=== PATIENT | male | born 1980 | race American Indian/Alaskan Native ===

== ENCOUNTER 2018-09-19 05:55 | Emergency (ER) | payer MEDICAID ==
[2018-09-19 06:12] VITALS: BP 155/87
[2018-09-19 07:22] LABS: Hematocrit 34.4 % (35.5-45.6); Hemoglobin 11.3 gm/dl (11.8-15.2); Mean Corpuscular HGB Conc 33 % (32-34); Mean Corpuscular Volume 85 fl (84-94); Platelet Count 250 K/mm3 (140-440); Red Blood Count 4.07 M/mm3 (3.65-5.03); Red Cell Distribution Width 13.1 % (13.2-15.2)
[2018-09-19 07:47] LABS: Alanine Aminotransferase 16 units/L (7-56); Albumin 3.9 g/dL (3.9-5); BUN/Creatinine Ratio 14; Blood Urea Nitrogen 14 mg/dL (9-20); Calcium 8.5 mg/dL (8.4-10.2); Hemolysis Index 5
--- NOTE | 2018-09-19 08:26 | Emergency Department Report ---
ED General Adult HPI - General Chief complaint: Extremity Injury, Lower Stated complaint: EARACHE/SWELLING IN BOTH LEGS/ANKLES Time Seen by Provider: 09/19/18 08:15 Source: patient Mode of arrival: Ambulatory Limitations: No Limitations - History of Present Illness Initial comments: Patient is a 38-year-old male who is complaining of 2 different issues. Patient was a patient states that his bilateral lower extremities have been swelling for the past 3-4 days. Patient states that the swelling is better in the morning to worsen throughout the day. Patient is on his feet quite often throughout the day. Patient denies any trauma. He states there is been no chest pain shortness of breath fevers chills nausea vomiting, cold or co ngestion. Second issue is that the patient states that his right ear has been aching and throbbing for the past 2 weeks. He denies any congestion sore throat. Patient is scheduled to see a ear nose and throat doctor however the appointment was canceled. The patient states the pain in the right ear as 3 out of 10 in severity and is aching and throbbing. Patient has a history of diabetes and hypertension. - Related Data Previous Rx's Medication Instructions Recorded Last Taken Type Amoxicillin/Potassium Clav 1 each PO BID #14 tablet 09/19/18 Unknown Rx [Augmentin 875-125 Tablet] Fluticasone [Flonase] 1 spray NS QDAY #1 bottle 09/19/18 Unknown Rx Furosemide [Lasix] 20 mg PO QDAY #7 tablet 09/19/18 Unknown Rx Ibuprofen [Motrin 800 MG tab] 800 mg PO Q8HR PRN #12 tablet 09/19/18 Unknown Rx Allergies Allergy/AdvReac Type Severity Reaction Status Date / Time No Known Allergies Allergy Unverified 09/19/18 05:59 ED Review of Systems ROS: Stated complaint: EARACHE/SWELLING IN BOTH LEGS/ANKLES Other details as noted in HPI Comment: All other systems reviewed and negative ED Past Medical Hx - Past Medical History Previous Medical History?: Yes Hx Hypertension: Yes Hx Diabetes: Yes Additional medical history: High Cholesterol - Surgical History Past Surgical History?: Yes Additional Surgical History: Abcess removal x 2, Bilateral elbow surgery, Tosilectomy and Adnoid removal, Sinus Surgery - Social History Smoking Status: Never Smoker - Medications Home Medications: Home Medications Medication Instructions Recorded Confirmed Last Taken Type Amoxicillin/Potassium Clav 1 each PO BID #14 tablet 09/19/18 Unknown Rx [Augmentin 875-125 Tablet] Fluticasone [Flonase] 1 spray NS QDAY #1 bottle 09/19/18 Unknown Rx Furosemide [Lasix] 20 mg PO QDAY #7 tablet 09/19/18 Unknown Rx Ibuprofen [Motrin 800 MG tab] 800 mg PO Q8HR PRN #12 tablet 09/19/18 Unknown Rx ED Physical Exam - General Limitations: No Limitations General appearance: alert, in no apparent distress - Head Head exam: Present: atraumatic, normocephalic - Eye Eye exam: Present: normal appearance, PERRL, EOMI - ENT ENT exam: Present: mucous membranes moist - Expanded ENT Exam Expanded TM/Canal exam: Erythema: Right TM, Bulging: Right TM, Effusion: Right TM (cloudy), Loss of Landmarks: Right TM Throat exam: Positive: normal inspection - Neck Neck exam: Present: normal inspection - Respiratory Respiratory exam: Present: normal lung sounds bilaterally. Absent: respiratory distress - Cardiovascular Cardiovascular Exam: Present: regular rate, normal rhythm - GI/Abdominal GI/Abdominal exam: Present: soft, normal bowel sounds. Absent: distended - Rectal Rectal exam: Present: deferred - Extremities Exam Extremities exam: Present: normal inspection, other (+2 HERLINDA bilaterally') - Back Exam Back exam: Present: normal inspection - Neurological Exam Neurological exam: Present: alert, oriented X3 - Psychiatric Psychiatric exam: Present: normal affect, normal mood - Skin Skin exam: Present: warm, dry, intact, normal color. Absent: rash ED Course Vital Signs 09/19/18 06:10 Temperature 97.7 F Pulse Rate 77 Respiratory 20 Rate Blood Pressure 155/87 O2 Sat by Pulse 98 Oximetry ED Medical Decision Making - Lab Data Result diagrams: 09/19/18 07:07 09/19/18 07:07 Lab Results 09/19/18 09/19/18 Range/Units 07:07 07:07 WBC 6.9 (4.5-11.0) K/mm3 RBC 4.07 (3.65-5.03) M/mm3 Hgb 11.3 L (11.8-15.2) gm/dl Hct 34.4 L (35.5-45.6) % MCV 85 (84-94) fl MCH 28 (28-32) pg MCHC 33 (32-34) % RDW 13.1 L (13.2-15.2) % Plt Count 250 (140-440) K/mm3 Sodium 142 (137-145) mmol/L Potassium 3.6 (3.6-5.0) mmol/L Chloride 103.5 (98-107) mmol/L Carbon Dioxide 26 (22-30) mmol/L Anion Gap 16 mmol/L BUN 14 (9-20) mg/dL Creatinine 1.0 (0.8-1.5) mg/dL Estimated GFR > 60 ml/min BUN/Creatinine Ratio 14 % Glucose 158 H (75-100) mg/dL Calcium 8.5 (8.4-10.2) mg/dL Total Bilirubin 0.30 (0.1-1.2) mg/dL AST 16 (5-40) units/L ALT 16 (7-56) units/L Alkaline Phosphatase 71 (35-129) units/L NT-Pro-B Natriuret Pep 168.9 (0-450) pg/mL Total Protein 6.8 (6.3-8.2) g/dL Albumin 3.9 (3.9-5) g/dL Albumin/Globulin Ratio 1.3 % - Medical Decision Making Regarding the patient's leg swelling the patient does not appear to be in a congestive heart failure exacerbation and the patient's renal function and liver function tests are within normal limits. Patient likely has some dependent edema secondary to some fluid overload secondary to his diet. Patient does admit that he had is noncompliant with his hypertensive/diabetic diet. He states he has been eating foods that do contain a large amount of salt. We did do some counseling regarding low sodium diet. Patient also be started on Lasix for several days to help with some swelling. Regarding the patient's ear pain patient does appear to have otitis media at this time he will be started on antibiotics secondary to his being diabetic and the duration of symptoms. This is less likely to be viral source. Critical care attestation.: If time is entered above; I have spent that time in minutes in the direct care of this critically ill patient, excluding procedure time. ED Disposition Clinical Impression: Dependent edema Acute otitis media Qualifiers: Otitis media type: suppurative Laterality: right Recurrence: non-recurrent Spontaneous tympanic membrane rupture: without spontaneous rupture Qualified Code(s): H66.001 - Acute suppurative otitis media without spontaneous rupture of ear drum, right ear Disposition: DC- TO HOME OR SELFCARE Is pt being admited?: No Does the pt Need Aspirin: No Condition: Stable Instructions: Leg Edema (ED), Low Sodium Diet (ED), Otitis Media (ED) Referrals: RAINA WARE MD [Primary Care Provider] - 3-5 Days Time of Disposition: 08:27
== END 2018-09-19 08:36 | disposition home or self-care (01) ==
LOC: ED 05:55
DX: H66.91 Otitis media, unspecified, right ear (principal); R60.9 Edema, unspecified; I10 Essential (primary) hypertension; E11.9 Type 2 diabetes mellitus without complications; E78.00 Pure hypercholesterolemia, unspecified; Z98.890 Other specified postprocedural states; Z79.899 Other long term (current) drug therapy
CPT/HCPCS: 36415; 80053; 83880; 85027; 99283

== ENCOUNTER 2020-02-09 22:13 | Observation (INO) | payer MEDICAID ==
[2020-02-09] MEDS ORDERED: ASPIRIN 325 MG TAB PO ONE (23:31)
--- NOTE | 2020-02-10 00:02 | Emergency Department Report ---
ED Chest Pain HPI - General Chief Complaint: Chest Pain Stated Complaint: CHEST PAIN/NECK PAIN PUI?: No Time Seen by Provider: 02/09/20 23:56 Source: patient Mode of arrival: Ambulatory Limitations: No Limitations - History of Present Illness Initial Comments: Patient is a 39-year-old male that presents emergency room with complaints of right and left chest pain and shortness of breath. Patient states his symptoms started at 6 PM. Patient states his symptoms are worsening. Patient states his chest pain is radiating to his neck. Patient states his chest pain or shortness of breath are better with rest and worse with exertion. Patient denies fever and chills. Patient denies cough. Patient denies nausea and vomiting. Patient denies diaphoresis.. Patient denies recent travel. Patient denies recent international travel. Patient denies exposure to the novel coronavirus. Patient denies sick contacts. Patient denies fever and chills. Patient denies cough. Patient denies diarrhea. Patient denies coming in contact with anybody with symptoms of the novel coronavirus. MD Complaint: chest pain -: Sudden Pain Location: substernal, left chest, right chest Pain Radiation: neck Severity scale (0 -10): 4 Quality: sharp Consistency: constant Improves With: rest Worsens With: exertion re: dyspnea. denies: nausea, vomting, diaphoresis, sense of impending doom Other Symptoms: denies: cough, fever, syncope, rash, acid taste in mouth, leg swelling, palpitations, burping Treatments Prior to Arrival: none Aspirin use within the Past 7 Days: (1) Yes - Related Data On Oral Contraceptives: No Home Medications Medication Instructions Recorded Confirmed Last Taken Labetalol 300mg TAB 300 mg PO BID 02/10/20 02/10/20 Unknown Quinapril HCl 40 mg PO DAILY 02/10/20 02/10/20 Unknown Triamter/Hctz 37.5-25 mg 25 mg PO DAILY 02/10/20 02/10/20 Unknown hydrALAZINE 100 mg PO BID 02/10/20 02/10/20 Unknown metFORMIN 1,000 mg PO BID 02/10/20 02/10/20 Unknown Allergies Allergy/AdvReac Type Severity Reaction Status Date / Time No Known Allergies Allergy Verified 02/09/20 23:57 Heart Score - HEART Score History: Moderately suspicious EKG: Non-specific Age: < 45 Risk factors: > 3 risk factors or hx of atherosclerotic disease Troponin: < normal limit HEART Score: 4 ED Review of Systems ROS: Stated complaint: CHEST PAIN/NECK PAIN Other details as noted in HPI Constitutional: denies: chills, fever Eyes: denies: eye pain, eye discharge, vision change ENT: denies: ear pain, throat pain Respiratory: shortness of breath. denies: cough, wheezing Cardiovascular: chest pain. denies: palpitations Endocrine: no symptoms reported Gastrointestinal: denies: abdominal pain, nausea, diarrhea Genitourinary: denies: urgency, dysuria Musculoskeletal: denies: back pain, joint swelling, arthralgia Skin: denies: rash, lesions Neurological: denies: headache, weakness, paresthesias Psychiatric: denies: anxiety, depression Hematological/Lymphatic: denies: easy bleeding, easy bruising ED Past Medical Hx - Past Medical History Previous Medical History?: Yes Hx Hypertension: Yes Hx Diabetes: Yes Additional medical history: High Cholesterol. Morbid Obesity - Surgical History Past Surgical History?: Yes Additional Surgical History: Abcess removal x 2, Bilateral elbow surgery, Tosilectomy and Adnoid removal, Sinus Surgery - Family History Family history: no significant - Social History Smoking Status: Never Smoker Substance Use Type: None - Medications Home Medications: Home Medications Medication Instructions Recorded Confirmed Last Taken Type Labetalol 300mg TAB 300 mg PO BID 02/10/20 02/10/20 Unknown History Quinapril HCl 40 mg PO DAILY 02/10/20 02/10/20 Unknown History Triamter/Hctz 37.5-25 mg 25 mg PO DAILY 02/10/20 02/10/20 Unknown History hydrALAZINE 100 mg PO BID 02/10/20 02/10/20 Unknown History metFORMIN 1,000 mg PO BID 02/10/20 02/10/20 Unknown History ED Physical Exam - General Limitations: No Limitations General appearance: alert, in no apparent distress - Head Head exam: Present: atraumatic, normocephalic - Eye Eye exam: Present: normal appearance - ENT ENT exam: Present: mucous membranes moist - Neck Neck exam: Present: normal inspection - Respiratory Respiratory exam: Present: normal lung sounds bilaterally. Absent: respiratory distress, chest wall tenderness - Cardiovascular Cardiovascular Exam: Present: regular rate, normal rhythm. Absent: systolic murmur, diastolic murmur, rubs, gallop - GI/Abdominal GI/Abdominal exam: Present: soft, normal bowel sounds - Rectal Rectal exam: Present: deferred - Extremities Exam Extremities exam: Present: normal inspection - Back Exam Back exam: Present: normal inspection - Neurological Exam Neurological exam: Present: alert, oriented X3 - Psychiatric Psychiatric exam: Present: normal affect, normal mood - Skin Skin exam: Present: warm, dry, intact, normal color. Absent: rash ED Course Vital Signs 02/09/20 02/09/20 02/10/20 23:16 23:54 00:00 Temperature 98.7 F Pulse Rate 106 H 107 H Respiratory 18 16 Rate Blood Pressure 116/58 106/57 O2 Sat by Pulse 94 95 97 Oximetry - Reevaluation(s) Reevaluation #1: I discussed all results with patient. I discussed plan of care with patient. Patient agrees with plan of care and admission. Patient to be admitted to the hospitalist service. 02/10/20 01:34 - Consultations Consultation #1: Hospitalist consulted for admission. Hospitalist to admit patient. 02/10/20 01:35 LÓPEZ score - López Score Age > 65: (0) No Aspirin use within the Past 7 Days: (1) Yes 3 or more CAD Risk Factors: (1) Yes 2 or more Angina events in past 24 hrs: (0) No Known CAD with more than 50% Stenosis: (0) No Elevated Cardiac Markers: (0) No ST Deviation Greater than 0.5mm: (0) No LÓPEZ Score: 2 ED Medical Decision Making - Lab Data Result diagrams: 02/09/20 23:46 02/09/20 23:46 - EKG Data -: EKG Interpreted by Me EKG shows normal: sinus rhythm, axis, intervals, QRS complexes, ST-T waves Rate: normal - Radiology Data Radiology results: report reviewed, image reviewed interpreted by me: Chest x-ray: No pneumonia, no pneumothorax, no foreign body, no osseous findings, no acute findings CHEST 1 VIEW INDICATION: Chest Pain. COMPARISON: None. FINDINGS: Support devices: None. Heart: Normal. Lungs/Pleura: No acute pulmonary or pleural findings. IMPRESSION: 1. No acute findings. - Medical Decision Making Patient is a 39-year-old male who presents emergency room with planes of chest pain and shortness of breath. Patient has significant cardiac risk factors. Patient's heart score and LÓPEZ score are elevated. Patient had labs done which were essentially unremarkable. Patient had a chest x-ray EKG. Chest x-ray shows no acute findings. Patient EKG is negative for a STEMI. Patient admitted to the hospital service for further evaluation and treatment and rule out ACS. - Differential Diagnosis ACS, chest pain, shortness of breath, Critical Care Time: Yes Critical care time in (mins) excluding proc time.: 35 Critical care attestation.: If time is entered above; I have spent that time in minutes in the direct care of this critically ill patient, excluding procedure time. Critical Care Time: 35 minutes ED Disposition Clinical Impression: SOB (shortness of breath) Chest pain Qualifiers: Chest pain type: unspecified Qualified Code(s): R07.9 - Chest pain, unspecified Disposition: DC-09 OP ADMIT IP TO THIS HOSP Is pt being admited?: Yes Does the pt Need Aspirin: No Condition: Critical Instructions: Chest Pain (ED) Time of Disposition: 01:39
--- NOTE | 2020-02-10 00:04 | XRay Report ---
CHEST 1 VIEW INDICATION: Chest Pain. COMPARISON: None. FINDINGS: Support devices: None. Heart: Normal. Lungs/Pleura: No acute pulmonary or pleural findings. IMPRESSION: 1. No acute findings. Signer Name: Ganesh Montgomery MD Signed: 02/09/2020 11:59 PM Workstation Name: [id number]
[2020-02-10 00:22] LABS: BUN/Creatinine Ratio 16; Blood Urea Nitrogen 19 mg/dL (9-20); Hemolysis Index 41
[2020-02-10 00:28] LABS: Basophils # (Auto) 0.1 K/mm3 (0.0-0.1); Eosinophils # (Auto) 0.2 K/mm3 (0.0-0.4); Eosinophils % (Auto) 2.4 % (0.0-4.3); Hematocrit 37.6 % (35.5-45.6); Hemoglobin 12.5 gm/dl (11.8-15.2); Lymphocytes # (Auto) 1.5 K/mm3 (1.2-5.4); Lymphocytes % (Auto) 22.9 % (13.4-35.0); Mean Corpuscular HGB Conc 33 % (32-34); Mean Corpuscular Volume 86 fl (84-94); Monocytes # (Auto) 0.7 K/mm3 (0.0-0.8); Monocytes % (Auto) 10.2 % (0.0-7.3); Platelet Count 313 K/mm3 (140-440); Red Blood Count 4.37 M/mm3 (3.65-5.03); Red Cell Distribution Width 13.9 % (13.2-15.2)
[2020-02-10] MEDS ORDERED: NITROGLYCERIN 0.4 MG TAB SUBL SL PRN (02:16)
[2020-02-10] MEDS ORDERED: MORPHINE 2 MG/1 ML INJ IV PRN (02:17)
[2020-02-10] MEDS ORDERED: ONDANSETRON 4 MG/2 ML INJ IV PRN (02:28)
[2020-02-10] MEDS ORDERED: DEXTROSE 50% IN WATER (25GM) 50 ML SYRINGE IV PRN (02:30)
--- NOTE | 2020-02-10 02:57 | History and Physical Report ---
History of Present Illness Date of examination: 02/10/20 Date of admission: 02/10/20 01:32 Chief complaint: Chest Pain History of present illness: 39 year old male presenting with sharp precordial and right anterior chest pain going on for some hours prior to presentation. Pain radiates to the neck and was associated with shortness of breath.Patient denies history of cough, fever, body aches, nausea or vomiting, there is no history of contact with a case of COVID- 19 patient. Past History Past Medical History: diabetes, hypertension, hyperlipidemia, other (OBESITY) Past Surgical History: tonsillectomy, Other (ADENOID DECTOMY, SINUS SURGERY, BILATERAL ELBOW SURGERY) Social history: no significant social history Family history: no significant family history Medications and Allergies Allergies Allergy/AdvReac Type Severity Reaction Status Date / Time No Known Allergies Allergy Verified 02/09/20 23:57 Home Medications Medication Instructions Recorded Confirmed Last Taken Type Labetalol 300mg TAB 300 mg PO BID 02/10/20 02/10/20 Unknown History Quinapril HCl 40 mg PO DAILY 02/10/20 02/10/20 Unknown History Triamter/Hctz 37.5-25 mg 25 mg PO DAILY 02/10/20 02/10/20 Unknown History hydrALAZINE 100 mg PO BID 02/10/20 02/10/20 Unknown History metFORMIN 1,000 mg PO BID 02/10/20 02/10/20 Unknown History Active Meds: Active Medications Acetaminophen (Tylenol) 650 mg PO Q4H PRN PRN Reason: Headache Aspirin (Aspirin) 325 mg PO QDAY [facility] Dextrose (D50w (25gm) Syringe) 50 ml IV Q30MIN PRN; Protocol PRN Reason: Hypoglycemia Heparin Sodium (Porcine) (Heparin) 5,000 unit SUB-Q Q12HR [facility] Insulin Human Regular (Humulin R) 0 unit SUB-Q Q4HR [facility]; Protocol Morphine Sulfate (Morphine) 2 mg IV Q3H PRN PRN Reason: Pain, Moderate (4-6) Nitroglycerin (Nitro-Bid 2%) 0.5 inch TP QIDNTG [facility]; Protocol Nitroglycerin (Nitrostat) 0.4 mg SL .Q5MIN PRN PRN Reason: Chest Pain Ondansetron HCl (Zofran) 4 mg IV Q8H PRN PRN Reason: Nausea And Vomiting Review of Systems Constitutional: no fever, no chills, no sweats, no weakness Eyes: bilateral: other (NO BILATYERAL EYE SYMPTOM) Ears, nose, mouth and throat: no ear pain Cardiovascular: chest pain, palpitations, shortness of breath, no orthopnea, no rapid/irregular heart beat, no syncope, no lightheadedness Respiratory: shortness of breath, dyspnea on exertion, no cough, no hemoptysis, no congestion, no wheezing Gastrointestinal: no abdominal pain, no nausea, no vomiting, no diarrhea, no constipation, no change in bowel habits, no hematemesis Genitourinary Male: no flank pain, no nocturia Rectal: no pain Musculoskeletal: no neck stiffness, no neck pain, no shooting arm pain, no arm numbness/tingling, no low back pain, no morning stiffness Integumentary: darkening of skin, no rash, no pruritis Neurological: no weakness, no seizures, no syncope, no tremors, no headaches Psychiatric: no anxiety, no memory loss Endocrine: no polydipsia, no polyuria, no nocturia Allergic/Immunologic: no anaphylaxis Exam - Constitutional Vitals: Temp Pulse Resp BP Pulse Ox 98.7 F 103 H 13 105/59 96 02/09/20 23:16 02/10/20 01:30 02/10/20 01:30 02/10/20 01:30 02/10/20 01:30 General appearance: Present: no acute distress - EENT Eyes: Present: PERRL, EOM intact ENT: hearing intact, clear oral mucosa - Neck Neck: Present: supple, normal ROM - Respiratory Respiratory effort: normal - Cardiovascular Rhythm: regular Heart Sounds: Present: S1 & S2. Absent: gallop, systolic murmur, diastolic murmur, click - Extremities Extremities: no ischemia, No edema Peripheral Pulses: within normal limits - Abdominal General gastrointestinal: Present: soft, non-tender, non-distended. Absent: tender, distended Male genitourinary: Present: deferred - Rectal Rectal Exam: deferred - Integumentary Integumentary: Present: clear, warm, dry - Musculoskeletal Musculoskeletal: strength equal bilaterally - Psychiatric Psychiatric: appropriate mood/affect HEART Score - HEART Score EKG: Non-specific Age: < 45 Risk factors: > 3 risk factors or hx of atherosclerotic disease Troponin: Troponin T 0.010 ng/mL (0.00-0.029) 02/09/20 23:46 Troponin: < normal limit - Critical Actions Critical Actions: 4-6 pts:12-16.6% risk of adverse cardiac event. Should be admitted (PATIENT IS UNDERGOING WORK UP FOR CHEST PAIN) Results - Labs CBC & Chem 7: 02/09/20 23:46 02/09/20 23:46 Labs: Laboratory Last Values WBC 6.6 K/mm3 (4.5-11.0) 02/09/20 23:46 RBC 4.37 M/mm3 (3.65-5.03) 02/09/20 23:46 Hgb 12.5 gm/dl (11.8-15.2) 02/09/20 23:46 Hct 37.6 % (35.5-45.6) 02/09/20 23:46 MCV 86 fl (84-94) 02/09/20 23:46 MCH 29 pg (28-32) 02/09/20 23:46 MCHC 33 % (32-34) 02/09/20 23:46 RDW 13.9 % (13.2-15.2) 02/09/20 23:46 Plt Count 313 K/mm3 (140-440) 02/09/20 23:46 Lymph % (Auto) 22.9 % (13.4-35.0) 02/09/20 23:46 [place] % (Auto) 10.2 % (0.0-7.3) H 02/09/20 23:46 Eos % (Auto) 2.4 % (0.0-4.3) 02/09/20 23:46 Baso % (Auto) 1.0 % (0.0-1.8) 02/09/20 23:46 Lymph # (Auto) 1.5 K/mm3 (1.2-5.4) 02/09/20 23:46 [place] # (Auto) 0.7 K/mm3 (0.0-0.8) 02/09/20 23:46 Eos # (Auto) 0.2 K/mm3 (0.0-0.4) 02/09/20 23:46 Baso # (Auto) 0.1 K/mm3 (0.0-0.1) 02/09/20 23:46 Seg Neutrophils % 63.5 % (40.0-70.0) 02/09/20 23:46 Seg Neutrophils # 4.2 K/mm3 (1.8-7.7) 02/09/20 23:46 Sodium 141 mmol/L (137-145) 02/09/20 23:46 Potassium 4.2 mmol/L (3.6-5.0) 02/09/20 23:46 Chloride 103.9 mmol/L (98-107) 02/09/20 23:46 Carbon Dioxide 25 mmol/L (22-30) 02/09/20 23:46 Anion Gap 16 mmol/L 02/09/20 23:46 BUN 19 mg/dL (9-20) 02/09/20 23:46 Creatinine 1.2 mg/dL (0.8-1.3) 02/09/20 23:46 Estimated GFR > 60 ml/min 02/09/20 23:46 BUN/Creatinine Ratio 16 % 02/09/20 23:46 Glucose 138 mg/dL (75-100) H 02/09/20 23:46 Calcium 9.0 mg/dL (8.4-10.2) 02/09/20 23:46 Troponin T 0.010 ng/mL (0.00-0.029) 02/09/20 23:46 Assessment and Plan - Patient Problems (1) Chest pain Current Visit: Yes Status: Acute Qualifiers: Chest pain type: unspecified Qualified Code(s): R07.9 - Chest pain, unsp ecified Plan to address problem: 1. TELEMETRY OBSERVATIONS 2. SERIAL CARDIAC ENZYMES 3. NPO 4. LEXISCAN STRESS TEST 5. NITROPASTE 6. ASPIRIN PO 7. I.V MORPHINE FOR PAIN 8. I.V ZOFRAN FOR NAUSEA AND VOMITING 9. OXYGEN BY NASAL CANNULA
[2020-02-10] MEDS ORDERED: HEPARIN 5,000 UNIT/1 ML VIAL ONE (03:04)
[2020-02-10] MEDS: HEPARIN 5,000 UNIT/1 ML VIAL SUB-Q SCH ×2 (03:06→10:54)
[2020-02-10] MEDS: INSULIN REGULAR, HUMAN 100 UNIT/ML 3ML VIAL SUB-Q SCH ×3 (03:11→10:54)
[2020-02-10] MEDS: ACETAMINOPHEN 325 MG TAB PO PRN ×2 (04:41→08:42)
[2020-02-10] MEDS: NITROGLYCERIN 2% OINT 1 GM TP SCH ×2 (06:37→10:55)
[2020-02-10 06:47] LABS: Creatine Kinase MB 5.1 ng/mL (0.0-4.0)
[2020-02-10] MEDS ORDERED: REGADENOSON 0.4 MG/5 ML INJ IV ONE ×2 (08:16→08:18)
[2020-02-10] MEDS ORDERED: ACETAMINOPHEN 325 MG TAB ONE (08:27)
[2020-02-10] MEDS ORDERED: ASPIRIN 325 MG TAB PO SCH (10:00)
[2020-02-10 10:42] VITALS: BP 151/85
[2020-02-10] MEDS ORDERED: NAPROXEN 500 MG TAB PO PRN (11:49)
[2020-02-10 13:26] LABS: Creatine Kinase MB 5.2 ng/mL (0.0-4.0)
--- NOTE | 2020-02-10 13:50 | Discharge Summary ---
Providers - Providers Date of Admission: 02/10/20 01:32 Date of discharge: 02/10/20 Attending physician: ELIO DAWN Primary care physician: [employer] Hospitalization Condition: Critical Hospital course: 39 year old male with a medical history of hypertension and diabetes presenting with sharp precordial and right anterior chest pain going on for some hours prior to presentation. Pain radiates to the neck and was associated with shortness of breath. Patient denies history of cough, fever, body aches, nausea or vomiting, there is no history of contact with a case of COVID-19 patient. He denies any history of coronary artery disease. Patient was admitted for stress test rule out Patient had a stress test performed that was negative for any reversible ischemia as per verbal report. Patient remained chest pain-free since admission. Patient takes his blood pressure medications daily but does not measure his blood pressure at home. I have advised him to get a blood pressure machine to be able to monitor his blood pressure closely at home. She has been advised to follow-up with primary medical doctor within 1 to 2 weeks. Disposition: TO HOME OR SELFCARE - Discharge Diagnoses (1) Hypertension Status: Acute (2) Diabetes mellitus Status: Acute (3) Chest pain Status: Acute Qualifiers: Chest pain type: unspecified Qualified Code(s): R07.9 - Chest pain, unspecified Core Measure Documentation - Palliative Care Palliative Care/ Comfort Measures: Not Applicable - Core Measures Any of the following diagnoses?: none Exam - Constitutional Vitals: Temp Pulse Resp BP Pulse Ox 98.6 F 99 H 18 151/85 94 02/10/20 04:55 02/10/20 08:59 02/10/20 09:42 02/10/20 10:18 02/10/20 04:55 General appearance: Present: no acute distress, well-nourished, obese - EENT Eyes: Present: PERRL ENT: hearing intact, clear oral mucosa - Neck Neck: Present: supple, normal ROM - Respiratory Respiratory effort: normal Respiratory: bilateral: CTA - Cardiovascular Heart Sounds: Present: S1 & S2. Absent: rub, click - Extremities Extremities: pulses symmetrical, No edema Peripheral Pulses: within normal limits - Abdominal General gastrointestinal: Present: soft, non-tender, non-distended, normal bowel sounds Male genitourinary: Present: normal - Integumentary Integumentary: Present: clear, warm, dry - Musculoskeletal Musculoskeletal: gait normal, strength equal bilaterally - Psychiatric Psychiatric: appropriate mood/affect, intact judgment & insight - Neurologic Neurologic: CNII-XII intact, moves all extremities Plan Activity: no restrictions Diet: low fat, low cholesterol, low salt, diabetic Additional Instructions: Follow-up with primary medical doctor in 1 to 2 weeks. He will need to have lipid profile test performed during your next visit with your PCP. Continue to measure blood pressure medications closely at home. Continue diabetes and blood pressure medications Follow up with: PRIMARY CARE, [Primary Care Provider] - 7 Days
[2020-02-10] MEDS ORDERED: amLODIPine 10 MG TAB PO SCH (14:00)
[2020-02-10] MEDS ORDERED: hydrALAZINE 25 MG TAB PO SCH (14:00)
[2020-02-10] MEDS ORDERED: INSULIN REGULAR, HUMAN 100 UNIT/ML 3ML VIAL SUB-Q SCH (16:30)
--- NOTE | 2020-02-11 23:43 | Treadmill Report ---
MYOCARDIAL PERFUSION SCAN/STRESS TEST CHIEF COMPLAINT: Chest pain. RAW IMAGES: There was no significant motion artifact noted. SPECT imaging revealed normal homogeneous uptake of radioisotope tracer. No significant reversible or fixed defects noted. No evidence of stress-induced ischemia or prior myocardial infarction. Gated imaging revealed normal global left ventricular systolic function, EF 59%. CONCLUSION: 1. No evidence of stress-induced ischemia or prior myocardial infarction. 2. Normal left ventricular systolic function, EF 59%. JOB# [id number] MMW/NTS
== END 2020-02-10 16:58 | disposition home or self-care (01) ==
LOC: ED 22:13 → 4A 02-10 01:32
PROVIDERS: ADMIT Internal Medicine; ATTEND Internal Medicine
DX: R07.89 Other chest pain (principal); I10 Essential (primary) hypertension; E11.9 Type 2 diabetes mellitus without complications; E78.5 Hyperlipidemia, unspecified; E66.01 Morbid (severe) obesity due to excess calories; Z90.49 Acquired absence of other specified parts of digestive tract; Z79.84 Long term (current) use of oral hypoglycemic drugs; Z98.890 Other specified postprocedural states; Z79.82 Long term (current) use of aspirin; Z68.42 Body mass index [BMI] 45.0-49.9, adult
CPT/HCPCS: 36415; 71045; 78452; 80048; 82550; 82553; 82962; 84484; 85025; 93005; 93017; 96372; 99291; A9502; G0378; J1644; J1815; J2785